=== PATIENT | male | born 1945 | race Caucasian/White ===

== ENCOUNTER 2017-09-26 08:45 | Inpatient (IN) | payer MEDICARE ==
--- NOTE | 2017-09-26 09:08 | ED ---
General Adult HPI - General Chief complaint: Altered Mental Status Stated complaint: Hyperglycemia/Altered Time Seen by Provider: 09/26/17 08:52 Source: patient, family, EMS, RN notes reviewed Mode of arrival: EMS Limitations: no limitations - History of Present Illness Initial comments: Patient is a pleasant 72-year-old male presenting to the emergency department with family for altered mental status. Onset was this morning. Patient has a known history of metastatic lung cancer. 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 Patient just recently underwent radiation the lumbar spine, and finished on Saturday. Patient was confused this morning and had several episodes of near-syncope. Patient appeared short of breath. Oxygen saturation was in the upper 70s. EMS also reports blood sugar over 400. Patient is currently on steroids. Decadron 4 mg twice a day. - Related Data Home Medications Medication Instructions Recorded Confirmed Amiodarone [Cordarone] 200 mg PO BID 09/26/17 09/26/17 Dexamethasone [Hexadrol] 4 mg PO BID 09/26/17 09/26/17 Diltiazem HCl [Diltiazem ER] 180 mg PO DAILY 09/26/17 09/26/17 Docusate [Colace] 100 mg PO BID 09/26/17 09/26/17 Enoxaparin [Lovenox] 90 mg SQ Q12H 09/26/17 09/26/17 Furosemide [Lasix] 40 mg PO HS 09/26/17 09/26/17 Furosemide [Lasix] 80 mg PO QAM 09/26/17 09/26/17 Gabapentin [Neurontin] 300 mg PO TID 09/26/17 09/26/17 HYDROmorphone [Dilaudid] 4 mg PO Q4H PRN 09/26/17 09/26/17 Insulin Aspart [NovoLOG Flexpen] See Protocol SQ ACHS 09/26/17 09/26/17 Insulin Glargine,Hum.rec.anlog 80 unit SQ 09/26/17 09/26/17 [Lantus Solostar] Magnesium(Unknown) 1 tab PO BID 09/26/17 09/26/17 Omeprazole [PriLOSEC] 20 mg PO DAILY 09/26/17 09/26/17 PARoxetine [Paxil] 10 mg PO DAILY 09/26/17 09/26/17 Pravastatin Sodium [Pravachol] 20 mg PO DAILY 09/26/17 09/26/17 fentaNYL 50MCG/HR PATCH [Duragesic 1 patch TRANSDERM Q72H 09/26/17 09/26/17 50MCG/HR] levETIRAcetam [Keppra] 500 mg PO BID 09/26/17 09/26/17 Allergies Allergy/AdvReac Type Severity Reaction Status Date / Time Sulfa (Sulfonamide Allergy Rash/Hives Verified 09/26/17 09:10 Antibiotics) Review of Systems ROS Statement: Those systems with pertinent positive or pertinent negative responses have been documented in the HPI. ROS Other: All systems not noted in ROS Statement are negative. Constitutional: Denies: fever Eyes: Denies: eye pain ENT: Denies: ear pain Respiratory: Reports: as per HPI, cough, dyspnea Cardiovascular: Denies: chest pain Endocrine: Reports: fatigue Gastrointestinal: Denies: abdominal pain Genitourinary: Denies: dysuria Musculoskeletal: Reports: back pain (Known metastasis) Skin: Denies: rash Neurological: Reports: confusion (Resolved). Denies: headache Past Medical History Past Medical History: Cancer, Diabetes Mellitus, Hyperlipidemia, Hypertension Additional Past Medical History / Comment(s): recent sinus infection, hx of brain Ca, lung ca with mets to spine R femur and sternum, pt had radiation of brain History of Any Multi-Drug Resistant Organisms: None Reported Past Surgical History: Hernia Repair Additional Past Surgical History / Comment(s): umbilical hernia, mediport L subclavian Past Anesthesia/Blood Transfusion Reactions: No Reported Reaction Past Psychological History: No Psychological Hx Reported Smoking Status: Former smoker Past Alcohol Use History: None Reported Past Drug Use History: None Reported - Past Family History Mother Additional Family Medical History / Comment(s): when pt was 12 years old. not sure of cause. Father Family Medical History: Liver Disease Additional Family Medical History / Comment(s): alcoholic cirrhosis General Exam Limitations: no limitations General appearance: alert, in no apparent distress Head exam: Present: atraumatic Eye exam: Present: normal appearance, PERRL ENT exam: Present: normal oropharynx Neck exam: Present: normal inspection Respiratory exam: Present: normal lung sounds bilaterally Cardiovascular Exam: Present: irregular rhythm GI/Abdominal exam: Present: soft. Absent: tenderness Extremities exam: Present: normal inspection Neurological exam: Present: alert, oriented X3. Absent: motor sensory deficit Psychiatric exam: Present: normal affect, normal mood Skin exam: Present: normal color Course Vital Signs 09/26/17 09/26/17 09/26/17 08:51 10:02 11:31 Temperature 97.0 F L 97.2 F L Pulse Rate 78 80 88 Respiratory 16 18 16 Rate Blood Pressure 135/47 135/68 144/64 O2 Sat by Pulse 100 100 100 Oximetry EKG Findings - EKG Comments: EKG Findings:: A. fib with rate of 81. QRS 92. QT 400. QTc 464. Normal axis. Normal QRS. No acute ST change. Medical Decision Making - Medical Decision Making Patient reevaluated and resting comfortably in bed. Patient and family are updated on results and plan. Case was discussed in detail with Dr. Parker, who would admit for hospital call. - Lab Data Result diagrams: 09/26/17 09:55 09/26/17 09:55 Lab Results 09/26/17 09/26/17 09/26/17 Range/Units 09:10 09:42 09:55 WBC 14.3 H (3.8-10.6) k/uL RBC 2.41 L (4.30-5.90) m/uL Hgb 7.4 L (13.0-17.5) gm/dL Hct 22.8 L (39.0-53.0) % MCV 94.6 (80.0-100.0) fL MCH 30.9 (25.0-35.0) pg MCHC 32.6 (31.0-37.0) g/dL RDW 18.4 H (11.5-15.5) % Plt Count 170 (150-450) k/uL Neutrophils % 93 % Lymphocytes % 1 % Monocytes % 5 % Eosinophils % 0 % Basophils % 0 % Neutrophils # 13.3 H (1.3-7.7) k/uL Lymphocytes # 0.2 L (1.0-4.8) k/uL Monocytes # 0.7 (0-1.0) k/uL Eosinophils # 0.0 (0-0.7) k/uL Basophils # 0.0 (0-0.2) k/uL Hypochromasia Moderate Anisocytosis Slight Macrocytosis Slight PT (9.0-12.0) sec INR (<1.2) APTT (22.0-30.0) sec Sample Site rt radial ABG pH 7.38 (7.35-7.45) ABG pCO2 40 (35-45) mmHg ABG pO2 94 (83-108) mmHg ABG HCO3 24 (21-25) mmol/L ABG Total CO2 25 H (19-24) mmol/L ABG O2 Saturation 97.1 H (94-97) % ABG Base Excess -1.7 mmol/L Jacob Test Yes FiO2 28 % Sodium (137-145) mmol/L Potassium (3.5-5.1) mmol/L Chloride (98-107) mmol/L Carbon Dioxide (22-30) mmol/L Anion Gap mmol/L BUN (9-20) mg/dL Creatinine (0.66-1.25) mg/dL Est GFR (CKD-EPI)AfAm (>60 ml/min/1.73 sqM) Est GFR (CKD-EPI)NonAf (>60 ml/min/1.73 sqM) Glucose (74-99) mg/dL POC Glucose (mg/dL) 423 H (75-99) mg/dL POC Glu Investment Banker ID Jeannie Mayfield Calcium (8.4-10.2) mg/dL Magnesium (1.6-2.3) mg/dL Total Bilirubin (0.2-1.3) mg/dL AST (17-59) U/L ALT (21-72) U/L Alkaline Phosphatase (38-126) U/L Total Protein (6.3-8.2) g/dL Albumin (3.5-5.0) g/dL Urine Color Urine Appearance (Clear) Urine pH (5.0-8.0) Ur Specific [place] (1.001-1.035) Urine Protein (Negative) Urine Glucose (UA) (Negative) Urine Ketones (Negative) Urine Blood (Negative) Urine Nitrite (Negative) Urine Bilirubin (Negative) Urine Urobilinogen (<2.0) mg/dL Ur Leukocyte Esterase (Negative) Urine RBC (0-5) /hpf Urine WBC (0-5) /hpf Ur Squamous Epith Cells (0-4) /hpf Urine Mucus (None) /hpf Stool Occult Blood (Negative) Acetone, Qual (Negative) 09/26/17 09/26/17 09/26/17 Range/Units 09:55 09:55 10:53 WBC (3.8-10.6) k/uL RBC (4.30-5.90) m/uL Hgb (13.0-17.5) gm/dL Hct (39.0-53.0) % MCV (80.0-100.0) fL MCH (25.0-35.0) pg MCHC (31.0-37.0) g/dL RDW (11.5-15.5) % Plt Count (150-450) k/uL Neutrophils % % Lymphocytes % % Monocytes % % Eosinophils % % Basophils % % Neutrophils # (1.3-7.7) k/uL Lymphocytes # (1.0-4.8) k/uL Monocytes # (0-1.0) k/uL Eosinophils # (0-0.7) k/uL Basophils # (0-0.2) k/uL Hypochromasia Anisocytosis Macrocytosis PT 11.8 (9.0-12.0) sec INR 1.2 H (<1.2) APTT 25.1 (22.0-30.0) sec Sample Site ABG pH (7.35-7.45) ABG pCO2 (35-45) mmHg ABG pO2 (83-108) mmHg ABG HCO3 (21-25) mmol/L ABG Total CO2 (19-24) mmol/L ABG O2 Saturation (94-97) % ABG Base Excess mmol/L Jacob Test FiO2 % Sodium 133 L (137-145) mmol/L Potassium 4.6 (3.5-5.1) mmol/L Chloride 94 L (98-107) mmol/L Carbon Dioxide 24 (22-30) mmol/L Anion Gap 15 mmol/L BUN 49 H (9-20) mg/dL Creatinine 1.68 H (0.66-1.25) mg/dL Est GFR (CKD-EPI)AfAm 47 (>60 ml/min/1.73 sqM) Est GFR (CKD-EPI)NonAf 41 (>60 ml/min/1.73 sqM) Glucose 383 H (74-99) mg/dL POC Glucose (mg/dL) 417 H (75-99) mg/dL POC Glu Investment Banker ID Fariha Nieto Calcium 8.7 (8.4-10.2) mg/dL Magnesium 2.2 (1.6-2.3) mg/dL Total Bilirubin 0.5 (0.2-1.3) mg/dL AST 89 H (17-59) U/L ALT 101 H (21-72) U/L Alkaline Phosphatase 44 (38-126) U/L Total Protein 4.6 L (6.3-8.2) g/dL Albumin 2.7 L (3.5-5.0) g/dL Urine Color Urine Appearance (Clear) Urine pH (5.0-8.0) Ur Specific [place] (1.001-1.035) Urine Protein (Negative) Urine Glucose (UA) (Negative) Urine Ketones (Negative) Urine Blood (Negative) Urine Nitrite (Negative) Urine Bilirubin (Negative) Urine Urobilinogen (<2.0) mg/dL Ur Leukocyte Esterase (Negative) Urine RBC (0-5) /hpf Urine WBC (0-5) /hpf Ur Squamous Epith Cells (0-4) /hpf Urine Mucus (None) /hpf Stool Occult Blood (Negative) Acetone, Qual Negative (Negative) 09/26/17 09/26/17 Range/Units 10:54 12:22 WBC (3.8-10.6) k/uL RBC (4.30-5.90) m/uL Hgb (13.0-17.5) gm/dL Hct (39.0-53.0) % MCV (80.0-100.0) fL MCH (25.0-35.0) pg MCHC (31.0-37.0) g/dL RDW (11.5-15.5) % Plt Count (150-450) k/uL Neutrophils % % Lymphocytes % % Monocytes % % Eosinophils % % Basophils % % Neutrophils # (1.3-7.7) k/uL Lymphocytes # (1.0-4.8) k/uL Monocytes # (0-1.0) k/uL Eosinophils # (0-0.7) k/uL Basophils # (0-0.2) k/uL Hypochromasia Anisocytosis Macrocytosis PT (9.0-12.0) sec INR (<1.2) APTT (22.0-30.0) sec Sample Site ABG pH (7.35-7.45) ABG pCO2 (35-45) mmHg ABG pO2 (83-108) mmHg ABG HCO3 (21-25) mmol/L ABG Total CO2 (19-24) mmol/L ABG O2 Saturation (94-97) % ABG Base Excess mmol/L Jacob Test FiO2 % Sodium (137-145) mmol/L Potassium (3.5-5.1) mmol/L Chloride (98-107) mmol/L Carbon Dioxide (22-30) mmol/L Anion Gap mmol/L BUN (9-20) mg/dL Creatinine (0.66-1.25) mg/dL Est GFR (CKD-EPI)AfAm (>60 ml/min/1.73 sqM) Est GFR (CKD-EPI)NonAf (>60 ml/min/1.73 sqM) Glucose (74-99) mg/dL POC Glucose (mg/dL) (75-99) mg/dL POC Glu Investment Banker ID Calcium (8.4-10.2) mg/dL Magnesium (1.6-2.3) mg/dL Total Bilirubin (0.2-1.3) mg/dL AST (17-59) U/L ALT (21-72) U/L Alkaline Phosphatase (38-126) U/L Total Protein (6.3-8.2) g/dL Albumin (3.5-5.0) g/dL Urine Color Yellow Urine Appearance Clear (Clear) Urine pH 5.0 (5.0-8.0) Ur Specific [place] 1.032 (1.001-1.035) Urine Protein Trace H (Negative) Urine Glucose (UA) Trace H (Negative) Urine Ketones Negative (Negative) Urine Blood Moderate H (Negative) Urine Nitrite Negative (Negative) Urine Bilirubin Negative (Negative) Urine Urobilinogen <2.0 (<2.0) mg/dL Ur Leukocyte Esterase Negative (Negative) Urine RBC 11 H (0-5) /hpf Urine WBC 3 (0-5) /hpf Ur Squamous Epith Cells 1 (0-4) /hpf Urine Mucus Occasional H (None) /hpf Stool Occult Blood Negative (Negative) Acetone, Qual (Negative) - Radiology Data Radiology results: report reviewed (Computed tomography scan of the brain shows degenerative and nonspecific white matter changes. Area of low attenuation left frontal lobe that may be chronic.), image reviewed (Two-view chest x-ray shows right paraspinal border lobulation that could be rotational however adenopathy or masses not excluded. Asymmetric attenuation right hemithorax.) Disposition Clinical Impression: Near syncope, Dehydration, Anemia, Hyperglycemia Disposition: ADMITTED IP TO THIS [facility] Condition: Serious Referrals: Jos Ledesma DO [Primary Care Provider] - 1-2 days Decision Time: 12:51
[2017-09-26 09:22] LABS: Glucose,Whole Blood 423 mg/dL (75-99)
[2017-09-26 09:42] LABS: ABG Base Excess -1.7 mmol/L; ABG HCO3 24 mmol/L (21-25); ABG Oxygen Saturation 97.1 % (94-97); ABG PCO2 40 mmHg (35-45); ABG PH 7.38 (7.35-7.45); ABG PO2 94 mmHg (83-108); ABG TCO2 25 mmol/L (19-24)
[2017-09-26] MEDS: INSULIN ASPART 100 UNIT/ML 1 ML 10 ML VIAL SQ SCH ×4 (09:42→21:42)
[2017-09-26 10:28] LABS: INR 1.2 (<1.2); Partial Thromboplastin Time 25.1 sec (22.0-30.0); Prothrombin Time 11.8 sec (9.0-12.0)
[2017-09-26 10:29] LABS: ALT 101 U/L (21-72); AST 89 U/L (17-59); Albumin 2.7 g/dL (3.5-5.0); Alkaline Phosphatase 44 U/L (38-126); Anion Gap 15 mmol/L; Blood Urea Nitrogen 49 mg/dL (9-20); Calcium 8.7 mg/dL (8.4-10.2); Carbon Dioxide 24 mmol/L (22-30); Chloride 94 mmol/L (98-107); Glucose 383 mg/dL (74-99); Magnesium 2.2 mg/dL (1.6-2.3); Potassium 4.6 mmol/L (3.5-5.1); Sodium 133 mmol/L (137-145); Total Bilirubin 0.5 mg/dL (0.2-1.3); Total Protein 4.6 g/dL (6.3-8.2)
--- NOTE | 2017-09-26 10:35 | XR ---
EXAMINATION TYPE: XR chest 2V DATE OF EXAM: 09/26/2017 COMPARISON: 03/01/2017 TECHNIQUE: PA and lateral views submitted. HISTORY: Altered mental status FINDINGS: Exam is limited. A Mediport catheter seen. Tip of the catheter is not well identified. There is vague asymmetric opacity overlying the right lung. Is lobulation along the paraspinal border on the right. Left lung appears clear. No obvious pleural effusion. Hypertrophic and degenerative change of the sp ine. IMPRESSION: 1. Lobulation along the right paraspinal border could be related to patient rotation although areas o f adenopathy or mass not excluded. Asymmetric attenuation to the right hemithorax may be soft tissue related. If there is concern for infiltrate correlate with CT scan given limitations of exam.
[2017-09-26 10:38] LABS: Anisocytosis Slight; Basophils % (A) 0 %; Eosinophils % (A) 0 %; HCT 22.8 % (39.0-53.0); HGB 7.4 gm/dL (13.0-17.5); Hypochromasia Moderate; Lymphocytes # (A) 0.2 k/uL (1.0-4.8); Lymphocytes % (A) 1 %; MCH 30.9 pg (25.0-35.0); MCHC 32.6 g/dL (31.0-37.0); MCV 94.6 fL (80.0-100.0); Macrocytosis Slight; Mean Platelet Volume 7.7; Monocytes # (A) 0.7 k/uL (0-1.0); Monocytes % (A) 5 %; Neutrophils # (A) 13.3 k/uL (1.3-7.7); Neutrophils % (A) 93 %; Platelet Count 170 k/uL (150-450); RBC 2.41 m/uL (4.30-5.90); RDW 18.4 % (11.5-15.5); WBC 14.3 k/uL (3.8-10.6)
[2017-09-26 10:58] LABS: Glucose,Whole Blood 417 mg/dL (75-99)
[2017-09-26 11:13] LABS: Appearance,Urine Clear (Clear); Bilirubin,Urine Negative (Negative); Blood,Urine Moderate (Negative); Color,Urine Yellow; Glucose,Urine (UA) Trace (Negative); Ketones,Urine Negative (Negative); Leukocyte Esterase,Urine Negative (Negative); Mucus,Urine Occasional /hpf; Nitrite,Urine Negative (Negative); Protein,Urine Trace (Negative); RBC,Urine 11 /hpf (0-5); Specific Gravity,Urine 1.032 (1.001-1.035); Squamous Epithelial Cell,Urine 1 /hpf (0-4); Urobilinogen,Urine <2.0 mg/dL (<2.0); WBC,Urine 3 /hpf (0-5)
[2017-09-26] MEDS ORDERED: SODIUM CHLORIDE 0.9% 500 ML IV ONE (11:13)
--- NOTE | 2017-09-26 11:48 | CT ---
EXAMINATION TYPE: CT brain wo/w con DATE OF EXAM: 09/26/2017 COMPARISON: 02/28/2017 HISTORY: Hyperglycemia, altered mental status and cancer history CT DLP: 2128.6 mGycm Automated exposure control for dose reduction was used. CONTRAST: CT scan of the head is performed without and with IV Contrast, patient injected with 80 ml mL of Isov ue 300. FINDINGS: There is [id number] generalized degenerative change. Periventricular low attenuation is nonspec ific but most typical remote microvascular ischemia. Intracranial atherosclerotic changes noted. The calvarium is intact. There is no enhancing mass or mass effect. IMPRESSION: 1. Degenerative and nonspecific white matter changes most typical remote microvascular ischemia and s imilar in appearance to the prior exam. 2. Abnormal attenuation seen within the left parietal lobe on the previous exam is not seen with cert ainty and today's exam with no definite enhancing mass. 3. Area of low attenuation left frontal lobe not clearly seen on the previous exam. This may be chron ic. There is no enhancement in the region to confirm metastases. Recommend follow-up MRI.
[2017-09-26] MEDS ORDERED: INSULIN ASPART 100 UNIT/ML 1 ML 10 ML VIAL SQ SCH (12:30)
[2017-09-26] MEDS ORDERED: MORPHINE SULFATE 4 MG/ML SYRINGE IV PRN (12:51)
[2017-09-26] MEDS ORDERED: NALOXONE 0.4 MG/ML 1 ML VIAL IV PRN (12:51)
[2017-09-26] MEDS ORDERED: HYDROmorphone 2 MG TAB PO PRN (13:30)
[2017-09-26] MEDS: SODIUM CHLORIDE 0.9% 1,000 ML IV SCH (14:01)
[2017-09-26 14:04] LABS: Glucose,Whole Blood 395 mg/dL (75-99)
[2017-09-26 15:37] LABS: Glucose,Whole Blood 359 mg/dL (75-99)
[2017-09-26] MEDS ORDERED: HEPARIN SODIUM,PORCINE 5,000 UNIT/ML 1 ML VIAL IV PRN (15:44)
[2017-09-26] MEDS: HEPARIN SOD,PORK IN 0.45% NACL 25,000 UNIT in 0.45% NACL 1 500ML.BAG IV SCH (16:09)
[2017-09-26 16:25] LABS: INR 1.1 (<1.2); Prothrombin Time 10.9 sec (9.0-12.0)
[2017-09-26 17:05] LABS: Glucose,Whole Blood 326 mg/dL (75-99)
--- NOTE | 2017-09-26 17:28 | P.HPIM ---
History of Present Illness H&P Date: 09/26/17 Chief Complaint: Altered mental status and confusion This is a 72-year-old male with an extensive medical history significant for metastatic lung cancer, chronic atrial fibrillation, recent DVT to right upper extremity on subcu Lovenox, and chronic hypoxic respiratory failure on home O2 who presented to the emergency room with confusion and hypoxia. Apparently patient has been more confused since last night. This morning he woke up confused and appeared clammy. His family noted that he was cold and they tried to check his oxygen level and he was down in the 70s. Patient was less responsive so they called EMS immediately. EMS paperwork not available for me to review. Per verbal report, patient was found to be hypoxic with O2 sat duration in the 70s and hypotensive with blood pressure in the 90s. Patient was rushed to the emergency room. By the time he arrived to the emergency room patient was awake and alert he was found to be hemodynamically stable. Twelve- lead ECG showed atrial fibrillation rate controlled. Patient himself denies any complaint at this time. Other than chronic back and hip pain he denies any shortness of breath, dizziness, chest pain, cough, or palpitation. No fevers or chills. In the emergency room, patient had general blood work showing worsening hemoglobin level and acute kidney injury. Chest x-ray and computed tomography scan report reviewed. I had the chance to discuss his care with his oncologist at [facility] over the phone and apparently patient was diagnosed in February of last year. 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 Patient underwent stereotactic radiosurgery to the frontal lobe mass with recent MRI last month showing no evidence of recurrence. He has been getting radiation therapy at [facility] in [place] with recent admission earlier this week. Review of Systems Review of system: 14 points review of systems were obtained and were negative except to what were mentioned in the HPI. Past Medical History Past Medical History: Atrial Fibrillation, Cancer, Diabetes Mellitus, GERD/ Reflux, Hyperlipidemia, Hypertension Additional Past Medical History / Comment(s): past sinus infections, hx of brain Ca(had radiation and "told it was clear"), lung ca(had 2 tx chemo but had reaction to it then had 7 week break from it then restarted a reformulated chemo tx 2 cycles of it but on last tx again developed a reaction to it). has mets to spine-(just finsihed radiation tx to spine), [place] femur and pelvis/ribs/ sternum. History of Any Multi-Drug Resistant Organisms: None Reported Past Surgical History: Hernia Repair Additional Past Surgical History / Comment(s): umbilical hernia, mediport L subclavian, cyst removed from tailbone Past Anesthesia/Blood Transfusion Reactions: No Reported Reaction Smoking Status: Former smoker - Past Family History Mother Additional Family Medical History / Comment(s): when pt was 12 years old. not sure of cause. Father Family Medical History: Liver Disease Additional Family Medical History / Comment(s): alcoholic cirrhosis Medications and Allergies Home Medications Medication Instructions Recorded Confirmed Type Amiodarone [Cordarone] 200 mg PO BID 09/26/17 09/26/17 History Dexamethasone [Hexadrol] 4 mg PO BID 09/26/17 09/26/17 History Diltiazem HCl [Diltiazem ER] 180 mg PO DAILY 09/26/17 09/26/17 History Docusate [Colace] 100 mg PO BID 09/26/17 09/26/17 History Enoxaparin [Lovenox] 90 mg SQ Q12H 09/26/17 09/26/17 History Furosemide [Lasix] 40 mg PO HS 09/26/17 09/26/17 History Furosemide [Lasix] 80 mg PO QAM 09/26/17 09/26/17 History Gabapentin [Neurontin] 300 mg PO TID 09/26/17 09/26/17 History HYDROmorphone [Dilaudid] 4 mg PO Q4H PRN 09/26/17 09/26/17 History Insulin Aspart [NovoLOG Flexpen] See Protocol SQ ACHS 09/26/17 09/26/17 History Insulin Glargine,Hum.rec.anlog 80 unit SQ HS 09/26/17 09/26/17 History [Lantus Solostar] Magnesium(Unknown) 1 tab PO BID 09/26/17 09/26/17 History Omeprazole [PriLOSEC] 20 mg PO DAILY 09/26/17 09/26/17 History PARoxetine [Paxil] 10 mg PO DAILY 09/26/17 09/26/17 History Pravastatin Sodium [Pravachol] 20 mg PO DAILY 09/26/17 09/26/17 History fentaNYL 50MCG/HR PATCH [Duragesic 1 patch TRANSDERM Q72H 09/26/17 09/26/17 History 50MCG/HR] levETIRAcetam [Keppra] 500 mg PO BID 09/26/17 09/26/17 History Allergies Allergy/AdvReac Type Severity Reaction Status Date / Time Sulfa (Sulfonamide Allergy Rash/Hives Verified 09/26/17 09:10 Antibiotics) Physical Exam Vitals: Vital Signs Temp Pulse Resp BP Pulse Ox 09/26/17 16:00 16 09/26/17 14:35 97.7 F 09/26/17 13:50 97.7 F 80 16 102/67 99 09/26/17 11:31 88 16 144/64 100 09/26/17 10:02 97.2 F L 80 18 135/68 100 09/26/17 08:51 97.0 F L 78 16 135/47 100 Intake and Output 09/26/17 09/26/17 09/26/17 06:59 14:59 22:59 Other: Voiding Method Urinal Diaper Weight 122.47 kg General: The patient is awake and alert, in no distress. He is morbidly obese. Eye: there is normal conjunctiva bilaterally. Neck: The neck is supple, there is no JVD. Cardiovascular: Heart sounds are distant. Normal S1-S2, no S3-S4, no murmurs. Respiratory: Lungs clear to anterior chest auscultation bilaterally Gastrointestinal: Abdomen is obese, soft, nontender Musculoskeletal: There is +1 pedal edema. Neurological:. Speech is normal. Skin: Skin is warm and dry Results CBC & Chem 7: 09/26/17 09:55 09/26/17 09:55 Labs: Abnormal Lab Results - Last 24 Hours (Table) 09/26/17 09/26/17 09/26/17 Range/Units 09:10 09:42 09:55 WBC 14.3 H (3.8-10.6) k/uL RBC 2.41 L (4.30-5.90) m/uL Hgb 7.4 L (13.0-17.5) gm/dL Hct 22.8 L (39.0-53.0) % RDW 18.4 H (11.5-15.5) % Neutrophils # 13.3 H (1.3-7.7) k/uL Lymphocytes # 0.2 L (1.0-4.8) k/uL INR (<1.2) ABG Total CO2 25 H (19-24) mmol/L ABG O2 Saturation 97.1 H (94-97) % Sodium (137-145) mmol/L Chloride (98-107) mmol/L BUN (9-20) mg/dL Creatinine (0.66-1.25) mg/dL Glucose (74-99) mg/dL POC Glucose (mg/dL) 423 H (75-99) mg/dL AST (17-59) U/L ALT (21-72) U/L Total Protein (6.3-8.2) g/dL Albumin (3.5-5.0) g/dL Urine Protein (Negative) Urine Glucose (UA) (Negative) Urine Blood (Negative) Urine RBC (0-5) /hpf Urine Mucus (None) /hpf 09/26/17 09/26/17 09/26/17 Range/Units 09:55 09:55 10:53 WBC (3.8-10.6) k/uL RBC (4.30-5.90) m/uL Hgb (13.0-17.5) gm/dL Hct (39.0-53.0) % RDW (11.5-15.5) % Neutrophils # (1.3-7.7) k/uL Lymphocytes # (1.0-4.8) k/uL INR 1.2 H (<1.2) ABG Total CO2 (19-24) mmol/L ABG O2 Saturation (94-97) % Sodium 133 L (137-145) mmol/L Chloride 94 L (98-107) mmol/L BUN 49 H (9-20) mg/dL Creatinine 1.68 H (0.66-1.25) mg/dL Glucose 383 H (74-99) mg/dL POC Glucose (mg/dL) 417 H (75-99) mg/dL AST 89 H (17-59) U/L ALT 101 H (21-72) U/L Total Protein 4.6 L (6.3-8.2) g/dL Albumin 2.7 L (3.5-5.0) g/dL Urine Protein (Negative) Urine Glucose (UA) (Negative) Urine Blood (Negative) Urine RBC (0-5) /hpf Urine Mucus (None) /hpf 09/26/17 09/26/17 09/26/17 Range/Units 10:54 13:46 15:36 WBC (3.8-10.6) k/uL RBC (4.30-5.90) m/uL Hgb (13.0-17.5) gm/dL Hct (39.0-53.0) % RDW (11.5-15.5) % Neutrophils # (1.3-7.7) k/uL Lymphocytes # (1.0-4.8) k/uL INR (<1.2) ABG Total CO2 (19-24) mmol/L ABG O2 Saturation (94-97) % Sodium (137-145) mmol/L Chloride (98-107) mmol/L BUN (9-20) mg/dL Creatinine (0.66-1.25) mg/dL Glucose (74-99) mg/dL POC Glucose (mg/dL) 395 H 359 H (75-99) mg/dL AST (17-59) U/L ALT (21-72) U/L Total Protein (6.3-8.2) g/dL Albumin (3.5-5.0) g/dL Urine Protein Trace H (Negative) Urine Glucose (UA) Trace H (Negative) Urine Blood Moderate H (Negative) Urine RBC 11 H (0-5) /hpf Urine Mucus Occasional H (None) /hpf 09/26/17 Range/Units 17:04 WBC (3.8-10.6) k/uL RBC (4.30-5.90) m/uL Hgb (13.0-17.5) gm/dL Hct (39.0-53.0) % RDW (11.5-15.5) % Neutrophils # (1.3-7.7) k/uL Lymphocytes # (1.0-4.8) k/uL INR (<1.2) ABG Total CO2 (19-24) mmol/L ABG O2 Saturation (94-97) % Sodium (137-145) mmol/L Chloride (98-107) mmol/L BUN (9-20) mg/dL Creatinine (0.66-1.25) mg/dL Glucose (74-99) mg/dL POC Glucose (mg/dL) 326 H (75-99) mg/dL AST (17-59) U/L ALT (21-72) U/L Total Protein (6.3-8.2) g/dL Albumin (3.5-5.0) g/dL Urine Protein (Negative) Urine Glucose (UA) (Negative) Urine Blood (Negative) Urine RBC (0-5) /hpf Urine Mucus (None) /hpf Thrombosis Risk Factor Assmnt - Choose All That Apply Each Factor Represents 1 point: Obesity (BMI >25) Other Risk Factors: Yes Each Risk Factor Represents 2 Points: Age 61-74 years Thrombosis Risk Factor Assessment Total Risk Factor Score: 3 Thrombosis Risk Factor Assessment Level: Moderate Risk Assessment and Plan Assessment: 1. Acute kidney injury: Probably contrast induced. Patient had computed tomography scan of the chest abdomen and pelvis at [facility] yesterday. I would continue IV fluid hydration. I will check postvoid residual to rule out retention. Repeat BMP in the morning. Hold nephrotoxic including Lasix. 2. Acute on chronic anemia, no evidence of ongoing bleed. Hemoccult was negative in the emergency room. Patient's hemoglobin 3 days ago was 11 and today 7.4. Computed tomography scan of the abdomen showed no evidence of internal bleed. We will continue to monitor closely and repeat lab work in the morning. Transfuse as needed for hemoglobin below 7. 3. Non-small lung cancer stage IV with bone metastasis currently on palliative radiation therapy. Patient maintained on Decadron twice a day. Radiation oncology. Computed tomography scan of the chest done at [facility] yesterday showed interval development of for occlusion of the right upper lobe bronchus with soft issue density noted suggestive for enlarging mass along the right hilar region. There was progression of lytic lesions throughout the bones. 4. Altered mental status, may be attributed to toxic metabolic encephalopathy secondary to acute kidney injury, opiate use, and gabapentin. No documentation of blood glucose at home but no report of hypoglycemia. Patient mental status is back to normal. Computed tomography scan of the brain reviewed. May consider MRI of the brain for further evaluation. Not urgent at this time 5. Type 2 diabetes mellitus, blood glucose not well controlled. We will continue home dose of insulin plus sliding scale. A1c ordered. 6. Acute on chronic hypoxic respiratory failure on home O2 7. Chronic atrial fibrillation, rate controlled. On anticoagulation with Lovenox 8. History of DVT involving the upper extremity (am not sure left or right) on anticoagulation chronically with Lovenox 9. Chronic pain secondary to bone metastasis, continue fentanyl patch. Continue as needed pain medication 10. CODE STATUS: Patient is a full code Today, I discussed the patient condition with his oncologist at [facility] Dr. Meeks. Plan is to continue supportive care and monitor kidney function. Patient would eventually follow-up at [facility]. Today, I had an extensive talk with the patient and his family regarding goals of care and CODE STATUS. Patient verbalizes wishes that he wants to be a full code. He is not interested in comfort measures or hospice care at this time.
[2017-09-26] MEDS: HYDROmorphone 2 MG TAB PO PRN (19:47)
[2017-09-26] MEDS ORDERED: MAGNESIUM PO SCH (21:00)
[2017-09-26 21:18] LABS: Hemoglobin A1C 8.2 % (4.0-6.0)
[2017-09-26 21:28] LABS: Glucose,Whole Blood 277 mg/dL (75-99)
[2017-09-26] MEDS: AMIODARONE 200 MG TAB PO SCH (21:42)
[2017-09-26] MEDS: INSULIN DETEMIR 100 UNIT/ML 10 ML VIAL SQ SCH (21:42)
[2017-09-26] MEDS: GABAPENTIN 100 MG CAP PO SCH (21:43)
[2017-09-26] MEDS: DOCUSATE 100 MG CAP PO SCH (21:43)
[2017-09-26] MEDS: levETIRAcetam 500 MG TAB PO SCH (21:43)
[2017-09-26] MEDS: DEXAMETHASONE 4 MG TAB PO SCH (21:43)
[2017-09-27] MEDS: SODIUM CHLORIDE 0.9% 1,000 ML IV SCH ×3 (04:09→21:18)
[2017-09-27 07:27] LABS: Glucose,Whole Blood 122 mg/dL (75-99)
[2017-09-27 08:27] LABS: Calcium 8.8 mg/dL (8.4-10.2); Potassium 4.1 mmol/L (3.5-5.1)
[2017-09-27] MEDS: INSULIN ASPART 100 UNIT/ML 1 ML 10 ML VIAL SQ SCH ×4 (08:30→21:19)
[2017-09-27 08:48] LABS: Anisocytosis Slight; HCT 20.2 % (39.0-53.0); Hypochromasia Slight; MCH 30.5 pg (25.0-35.0); MCHC 31.7 g/dL (31.0-37.0); MCV 96.4 fL (80.0-100.0); Macrocytosis Slight; Mean Platelet Volume 7.5; Platelet Count 155 k/uL (150-450); RBC 2.09 m/uL (4.30-5.90); RDW 19.3 % (11.5-15.5)
[2017-09-27 08:54] LABS: HGB 6.4 gm/dL (13.0-17.5)
[2017-09-27] MEDS ORDERED: PANTOPRAZOLE 40 MG/10 ML VIAL IV SCH (09:00)
[2017-09-27] MEDS: AMIODARONE 200 MG TAB PO SCH ×2 (09:06→21:19)
[2017-09-27] MEDS: DOCUSATE 100 MG CAP PO SCH ×2 (09:07→21:19)
[2017-09-27] MEDS: DILTIAZEM CD 180 MG CAP.ER.24H PO SCH (09:07)
[2017-09-27] MEDS: DEXAMETHASONE 4 MG TAB PO SCH ×2 (09:07→21:19)
[2017-09-27] MEDS: GABAPENTIN 100 MG CAP PO SCH ×2 (09:07→21:19)
[2017-09-27] MEDS: levETIRAcetam 500 MG TAB PO SCH ×2 (09:08→21:19)
[2017-09-27] MEDS: PRAVASTATIN SODIUM 20 MG TAB PO SCH (09:08)
[2017-09-27] MEDS: PARoxetine 10 MG TAB PO SCH (09:08)
[2017-09-27 10:08] LABS: Metamyelocytes # (M) 0.13 k/uL (0); Metamyelocytes % 1 %; Monocytes # (M) 0.38 k/uL (0-1.0); Neutrophils % (M) 92 %; Nucleated Red Blood Cells 2 /100 WBC (0-0); Total Cells Counted 200
[2017-09-27 10:09] LABS: Poikilocytosis (M) Present; Polychromasia Present; WBC 12.5 k/uL (3.8-10.6)
--- NOTE | 2017-09-27 11:13 | P.PN ---
Subjective Progress Note Date: 09/27/17 Principal diagnosis: Acute on chronic anemia Metastatic lung cancer Patient is still feeling weak and lightheaded this morning. Hemoglobin dropped to 6.4 this morning. No evidence of GI bleed. No black or tarry stool. Objective - Vital Signs Vital signs: Vital Signs Temp 98.7 F 09/27/17 08:10 Pulse 94 09/27/17 08:10 Resp 16 09/27/17 08:10 BP 134/62 09/27/17 08:10 Pulse Ox 97 09/27/17 08:10 Intake & Output 09/26/17 09/27/17 09/27/17 18:59 06:59 18:59 Intake Total 733.405 Balance 733.405 Weight 122.47 kg Intake: Intake, IV Titration 143.405 Amount Heparin Sod,Pork in 0.45% 143.405 NaCl 25,000 unit In 0.45 % NaCl 1 500ml.bag @ 8.17 UNITS/KG/HR 20.01 mls/hr IV .Q24H [facility] Rx#: [id number] Oral 590 Other: Voiding Method Urinal Urinal Diaper Diaper # Voids 1 - Exam General: The patient is awake and alert, in no distress. He appeared pale Eye: there is normal conjunctiva bilaterally. Neck: The neck is supple, there is no JVD. Cardiovascular: Normal S1-S2, no S3-S4, no murmurs. Respiratory: Lungs clear to auscultation bilaterally Gastrointestinal: Abdomen is obese, soft, nontender Musculoskeletal: There is no pedal edema. Neurological:. Speech is normal. Skin: Skin is warm and dry - Labs CBC & Chem 7: 09/27/17 07:09 09/27/17 07:09 Labs: Abnormal Lab Results - Last 24 Hours (Table) 09/26/17 09/26/17 09/26/17 Range/Units 09:55 10:54 13:46 WBC (3.8-10.6) k/uL RBC (4.30-5.90) m/uL Hgb (13.0-17.5) gm/dL Hct (39.0-53.0) % RDW (11.5-15.5) % Neutrophils # (Manual) (1.3-7.7) k/uL Lymphocytes # (Manual) (1.0-4.8) k/uL Metamyelocytes # (Man) (0) k/uL Nucleated RBCs (0-0) /100 WBC APTT (22.0-30.0) sec Sodium (137-145) mmol/L Chloride (98-107) mmol/L Carbon Dioxide (22-30) mmol/L BUN (9-20) mg/dL Creatinine (0.66-1.25) mg/dL Glucose (74-99) mg/dL POC Glucose (mg/dL) 395 H (75-99) mg/dL Hemoglobin A1c 8.2 H (4.0-6.0) % Urine Protein Trace H (Negative) Urine Glucose (UA) Trace H (Negative) Urine Blood Moderate H (Negative) Urine RBC 11 H (0-5) /hpf Urine Mucus Occasional H (None) /hpf 09/26/17 09/26/17 09/26/17 Range/Units 15:36 17:04 21:27 WBC (3.8-10.6) k/uL RBC (4.30-5.90) m/uL Hgb (13.0-17.5) gm/dL Hct (39.0-53.0) % RDW (11.5-15.5) % Neutrophils # (Manual) (1.3-7.7) k/uL Lymphocytes # (Manual) (1.0-4.8) k/uL Metamyelocytes # (Man) (0) k/uL Nucleated RBCs (0-0) /100 WBC APTT (22.0-30.0) sec Sodium (137-145) mmol/L Chloride (98-107) mmol/L Carbon Dioxide (22-30) mmol/L BUN (9-20) mg/dL Creatinine (0.66-1.25) mg/dL Glucose (74-99) mg/dL POC Glucose (mg/dL) 359 H 326 H 277 H (75-99) mg/dL Hemoglobin A1c (4.0-6.0) % Urine Protein (Negative) Urine Glucose (UA) (Negative) Urine Blood (Negative) Urine RBC (0-5) /hpf Urine Mucus (None) /hpf 09/26/17 09/27/17 09/27/17 Range/Units 22:28 07:09 07:09 WBC 12.5 H (3.8-10.6) k/uL RBC 2.09 L (4.30-5.90) m/uL Hgb 6.4 L* (13.0-17.5) gm/dL Hct 20.2 L (39.0-53.0) % RDW 19.3 H (11.5-15.5) % Neutrophils # (Manual) 11.50 H (1.3-7.7) k/uL Lymphocytes # (Manual) 0.50 L (1.0-4.8) k/uL Metamyelocytes # (Man) 0.13 H (0) k/uL Nucleated RBCs 2 H (0-0) /100 WBC APTT 33.7 H (22.0-30.0) sec Sodium 134 L (137-145) mmol/L Chloride 97 L (98-107) mmol/L Carbon Dioxide 31 H (22-30) mmol/L BUN 53 H (9-20) mg/dL Creatinine 1.57 H (0.66-1.25) mg/dL Glucose 102 H (74-99) mg/dL POC Glucose (mg/dL) (75-99) mg/dL Hemoglobin A1c (4.0-6.0) % Urine Protein (Negative) Urine Glucose (UA) (Negative) Urine Blood (Negative) Urine RBC (0-5) /hpf Urine Mucus (None) /hpf 09/27/17 09/27/17 Range/Units 07:09 07:25 WBC (3.8-10.6) k/uL RBC (4.30-5.90) m/uL Hgb (13.0-17.5) gm/dL Hct (39.0-53.0) % RDW (11.5-15.5) % Neutrophils # (Manual) (1.3-7.7) k/uL Lymphocytes # (Manual) (1.0-4.8) k/uL Metamyelocytes # (Man) (0) k/uL Nucleated RBCs (0-0) /100 WBC APTT 47.2 H (22.0-30.0) sec Sodium (137-145) mmol/L Chloride (98-107) mmol/L Carbon Dioxide (22-30) mmol/L BUN (9-20) mg/dL Creatinine (0.66-1.25) mg/dL Glucose (74-99) mg/dL POC Glucose (mg/dL) 122 H (75-99) mg/dL Hemoglobin A1c (4.0-6.0) % Urine Protein (Negative) Urine Glucose (UA) (Negative) Urine Blood (Negative) Urine RBC (0-5) /hpf Urine Mucus (None) /hpf Assessment and Plan Assessment: 1. Acute kidney injury: Probably contrast induced. Patient had computed tomography scan of the chest abdomen and pelvis at [facility] yesterday. I would continue IV fluid hydration. Postvoid residual was not done by nursing staff as directed, I spoke to the nurse personally today to get it done . Repeat BMP in the morning. Hold nephrotoxic including Lasix. 2. Acute on chronic anemia, no evidence of ongoing bleed. 2 units of PRBC transfusion ordered today. I will repeat computed tomography scan of the abdomen to rule out intra-abdominal bleed Hemoccult was negative in the emergency room. Patient's hemoglobin 3 days ago was 11.3 at [facility]. Computed tomography scan of the abdomen on 09/25 at [facility] showed no evidence of internal bleed. We will continue to monitor closely and repeat lab work in the morning. 3. Non-small lung cancer stage IV with bone metastasis currently on palliative radiation therapy. Patient maintained on Decadron twice a day. Radiation oncology. Computed tomography scan of the chest done at [facility] yesterday showed interval development of for occlusion of the right upper lobe bronchus with soft issue density noted suggestive for enlarging mass along the right hilar region. There was progression of lytic lesions throughout the bones. 4. Altered mental status, may be attributed to toxic metabolic encephalopathy secondary to acute kidney injury, opiate use, and gabapentin. No documentation of blood glucose at home but no report of hypoglycemia. Patient mental status is back to normal. Computed tomography scan of the brain reviewed. May consider MRI of the brain for further evaluation. Not urgent at this time 5. Type 2 diabetes mellitus, blood glucose not well controlled. We will continue home dose of insulin plus sliding scale. A1c 8.2 6. Acute on chronic hypoxic respiratory failure on home O2 7. Chronic atrial fibrillation, rate controlled. On anticoagulation at home with Lovenox 8. History of DVT involving the upper extremity (am not sure left or right) on anticoagulation chronically with Lovenox 9. Chronic pain secondary to bone metastasis, continue fentanyl patch. Continue as needed pain medication 10. CODE STATUS: Patient is a full code I discussed the patient condition with his oncologist at [facility] Dr. Meeks. Plan is to continue supportive care and monitor kidney function. Patient would eventually follow-up at [facility]. Since there is no evidence of ongoing GI bleed I would continue with IV heparin for now until seen by hematology. I will try to get hold of his oncologist at [facility] today to update him. Today, I had a prolonged discussion with the patient's and his family at bedside about his current condition. We discussed risk and benefits of anticoagulation in particular with his underlying A. fib, high risk of stroke, and recent DVT. We will continue anticoagulation for now until I discuss further with hematology/oncology.
[2017-09-27 11:48] LABS: Glucose,Whole Blood 148 mg/dL (75-99)
[2017-09-27] MEDS: HYDROmorphone 2 MG TAB PO PRN (14:28)
[2017-09-27] MEDS: HEPARIN SOD,PORK IN 0.45% NACL 25,000 UNIT in 0.45% NACL 1 500ML.BAG IV SCH (14:30)
--- NOTE | 2017-09-27 14:59 | P.CONS ---
History of Present Illness - Reason for Consult Consult date: 09/27/17 Metastatic Lung Cancer on [place] Requesting physician: Jose Bess - Chief Complaint Hypoxia - History of Present Illness HPI: Mr. Cano is a very pleasant 72-year-old male who was first seen by our practice in February 2017 during hospital consultation, hospitalized at that time for mental status changes and was found to have a new diagnosis of Lung cancer with metastatic Disease to Brain. He has a known extensive medical history including atrial fibrillation, DVT (Recent) to the Right Upper Extremity, being treated with SQ Lovenox, Recurrent acute on chronic respiratory insufficiency/failure, wears home oxygen. He is currently receiving his oncologic care at [facility]. 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 Per the medical record he underwent stereotactic radiosurgery to the frontal lobe mass with recent MRI last month failed to show evidence of recurrence, these studies and treatments were completed through [facility]. He has been getting radiation therapy at [facility] in [place]. He apparently was recently admitted this week to [facility]. He was brought to [facility] 09/26/17 for further assessment of increasing mental status changes. Family reveals his oxygen saturation at home was low in the 70s. EMS was called and patient was transported to ER for further evaluation. 09/27/17 - Patient has been seen and evaluated today in consultation. On admission his hemoglobin was 7.6, today 6.4. WBC = 12.5, Platlet Count 155. Per daughter hemoglobin was 11.6 3 days prior. He did not admit to recent fall, although he is sleepy and family at bedside. Overall his mental status per family has improved. He has no appetite. Review of Systems A 14 point review of systems assessed and completed and all negative except HPI Past Medical History Past Medical History: Atrial Fibrillation, Cancer, Diabetes Mellitus, GERD/ Reflux, Hyperlipidemia, Hypertension Additional Past Medical History / Comment(s): past sinus infections, hx of brain Ca(had radiation and "told it was clear"), lung ca(had 2 tx chemo but had reaction to it then had 7 week break from it then restarted a reformulated chemo tx 2 cycles of it but on last tx again developed a reaction to it). has mets to spine-(just finsihed radiation tx to spine), [place] femur and pelvis/ribs/ sternum. History of Any Multi-Drug Resistant Organisms: None Reported Past Surgical History: Hernia Repair Additional Past Surgical History / Comment(s): umbilical hernia, mediport L subclavian, cyst removed from tailbone Past Anesthesia/Blood Transfusion Reactions: No Reported Reaction Smoking Status: Former smoker - Past Family History Mother Additional Family Medical History / Comment(s): when pt was 12 years old. not sure of cause. Father Family Medical History: Liver Disease Additional Family Medical History / Comment(s): alcoholic cirrhosis Medications and Allergies Home Medications Medication Instructions Recorded Confirmed Type Amiodarone [Cordarone] 200 mg PO BID 09/26/17 09/26/17 History Dexamethasone [Hexadrol] 4 mg PO BID 09/26/17 09/26/17 History Diltiazem HCl [Diltiazem ER] 180 mg PO DAILY 09/26/17 09/26/17 History Docusate [Colace] 100 mg PO BID 09/26/17 09/26/17 History Enoxaparin [Lovenox] 90 mg SQ Q12H 09/26/17 09/26/17 History Furosemide [Lasix] 40 mg PO HS 09/26/17 09/26/17 History Furosemide [Lasix] 80 mg PO QAM 09/26/17 09/26/17 History Gabapentin [Neurontin] 300 mg PO TID 09/26/17 09/26/17 History HYDROmorphone [Dilaudid] 4 mg PO Q4H PRN 09/26/17 09/26/17 History Insulin Aspart [NovoLOG Flexpen] See Protocol SQ ACHS 09/26/17 09/26/17 History Insulin Glargine,Hum.rec.anlog 80 unit SQ 09/26/17 09/26/17 History [Lantus Solostar] Magnesium(Unknown) 1 tab PO BID 09/26/17 09/26/17 History Omeprazole [PriLOSEC] 20 mg PO DAILY 09/26/17 09/26/17 History PARoxetine [Paxil] 10 mg PO DAILY 09/26/17 09/26/17 History Pravastatin Sodium [Pravachol] 20 mg PO DAILY 09/26/17 09/26/17 History fentaNYL 50MCG/HR PATCH [Duragesic 1 patch TRANSDERM Q72H 09/26/17 09/26/17 History 50MCG/HR] levETIRAcetam [Keppra] 500 mg PO BID 09/26/17 09/26/17 History Allergies Allergy/AdvReac Type Severity Reaction Status Date / Time Sulfa (Sulfonamide Allergy Rash/Hives Verified 09/26/17 09:10 Antibiotics) Physical Exam Vitals: Vital Signs Temp Pulse Resp BP Pulse Ox 09/27/17 08:10 98.7 F 94 16 134/62 97 09/27/17 06:23 98.2 F 95 16 144/61 91 L 09/26/17 22:54 97.5 F L 88 16 127/69 100 09/26/17 20:17 95 09/26/17 16:00 16 09/26/17 14:35 97.7 F Intake and Output 09/26/17 09/27/17 09/27/17 22:59 06:59 14:59 Intake Total 590 143.405 Balance 590 143.405 Intake: Intake, IV Titration 143.405 Amount Heparin Sod,Pork in 0.45% 143.405 NaCl 25,000 unit In 0.45 % NaCl 1 500ml.bag @ 8.17 UNITS/KG/HR 20.01 mls/hr IV .Q24H [facility] Rx#: [id number] Oral 590 Other: Voiding Method Urinal Urinal Diaper Diaper # Voids 2 1 - Constitutional General appearance: cooperative, morbidly obese, no acute distress - EENT Eyes: dentition normal ENT: NA/AT, thrush - Neck supple, Trachea midline Neck: normal ROM - Respiratory Respiratory: bilateral: CTA (Anterior, diminished auscultation due to size) - Cardiovascular A fib Rhythm: irregularly irregular leg Peripheral Edema: bilateral: 2+ - Gastrointestinal General gastrointestinal: normal bowel sounds, soft, tenderness - Integumentary Integumentary: pale - Neurologic No focal Defects Neurologic: CNII-XII intact - Musculoskeletal Musculoskeletal: generalized weakness - Psychiatric Fatigued and flat effect Psychiatric: A&O x's 3 Results CBC & Chem 7: 09/27/17 07:09 09/27/17 07:09 Labs: Abnormal Lab Results - Last 24 Hours (Table) 09/26/17 09/26/17 09/26/17 Range/Units 09:55 09:55 15:36 WBC (3.8-10.6) k/uL RBC (4.30-5.90) m/uL Hgb (13.0-17.5) gm/dL Hct (39.0-53.0) % RDW (11.5-15.5) % Neutrophils # (Manual) (1.3-7.7) k/uL Lymphocytes # (Manual) (1.0-4.8) k/uL Metamyelocytes # (Man) (0) k/uL Nucleated RBCs (0-0) /100 WBC APTT (22.0-30.0) sec Sodium (137-145) mmol/L Chloride (98-107) mmol/L Carbon Dioxide (22-30) mmol/L BUN (9-20) mg/dL Creatinine (0.66-1.25) mg/dL Glucose (74-99) mg/dL POC Glucose (mg/dL) 359 H (75-99) mg/dL Hemoglobin A1c 8.2 H (4.0-6.0) % Crossmatch See Detail 09/26/17 09/26/17 09/26/17 Range/Units 17:04 21:27 22:28 WBC (3.8-10.6) k/uL RBC (4.30-5.90) m/uL Hgb (13.0-17.5) gm/dL Hct (39.0-53.0) % RDW (11.5-15.5) % Neutrophils # (Manual) (1.3-7.7) k/uL Lymphocytes # (Manual) (1.0-4.8) k/uL Metamyelocytes # (Man) (0) k/uL Nucleated RBCs (0-0) /100 WBC APTT 33.7 H (22.0-30.0) sec Sodium (137-145) mmol/L Chloride (98-107) mmol/L Carbon Dioxide (22-30) mmol/L BUN (9-20) mg/dL Creatinine (0.66-1.25) mg/dL Glucose (74-99) mg/dL POC Glucose (mg/dL) 326 H 277 H (75-99) mg/dL Hemoglobin A1c (4.0-6.0) % Crossmatch 09/27/17 09/27/17 09/27/17 Range/Units 07:09 07:09 07:09 WBC 12.5 H (3.8-10.6) k/uL RBC 2.09 L (4.30-5.90) m/uL Hgb 6.4 L* (13.0-17.5) gm/dL Hct 20.2 L (39.0-53.0) % RDW 19.3 H (11.5-15.5) % Neutrophils # (Manual) 11.50 H (1.3-7.7) k/uL Lymphocytes # (Manual) 0.50 L (1.0-4.8) k/uL Metamyelocytes # (Man) 0.13 H (0) k/uL Nucleated RBCs 2 H (0-0) /100 WBC APTT 47.2 H (22.0-30.0) sec Sodium 134 L (137-145) mmol/L Chloride 97 L (98-107) mmol/L Carbon Dioxide 31 H (22-30) mmol/L BUN 53 H (9-20) mg/dL Creatinine 1.57 H (0.66-1.25) mg/dL Glucose 102 H (74-99) mg/dL POC Glucose (mg/dL) (75-99) mg/dL Hemoglobin A1c (4.0-6.0) % Crossmatch 09/27/17 09/27/17 Range/Units 07:25 11:47 WBC (3.8-10.6) k/uL RBC (4.30-5.90) m/uL Hgb (13.0-17.5) gm/dL Hct (39.0-53.0) % RDW (11.5-15.5) % Neutrophils # (Manual) (1.3-7.7) k/uL Lymphocytes # (Manual) (1.0-4.8) k/uL Metamyelocytes # (Man) (0) k/uL Nucleated RBCs (0-0) /100 WBC APTT (22.0-30.0) sec Sodium (137-145) mmol/L Chloride (98-107) mmol/L Carbon Dioxide (22-30) mmol/L BUN (9-20) mg/dL Creatinine (0.66-1.25) mg/dL Glucose (74-99) mg/dL POC Glucose (mg/dL) 122 H 148 H (75-99) mg/dL Hemoglobin A1c (4.0-6.0) % Crossmatch Assessment and Plan Plan: Assessment and Recommendations: 1. Metastatic Non-Small Cell Lung cancer: - Metastatic Disease to Brain and Bones, which appears to have progressed although uncertain with last 6 month care under an outside facility - Computed tomography scan of the chest done at [facility] yesterday showed interval development of for occlusion of the right upper lobe bronchus with soft issue density noted suggestive for enlarging mass along the right hilar region. There was progression of lytic lesions throughout the bones. - Original Diagnosis in February 2017 - Under the care of [facility] - Received SRS Radiation to Frontal Lobe Metastasis - Request sent to obtain recent diagnostics and pathology 2. Normocytic Anemia - Hemoglobin 6.4 today - ABLA versus other - No Evidence of acute Bleeding, Hemoglobin 3 days prior was apparently 11. - Anemia Work-up in progress, Last Chemo in August treatment per patient is palliative radiation therapy to lumbar spine just completed - Elevated liver function, confirm no underlying hemolysis - Await results of CT abdomen and Pelvis for etiology of anemia - Agree with PRBC Transfusion today, when hemoglobin is less than 7 3. Acute Kidney Injury: - Recent IV Contrast, likely component. - Patient had computed tomography scan of the chest abdomen and pelvis at [facility] yesterday. - Continue IV fluid hydration. Per Primary Team 4. Altered mental Status Changes: - Component of Metabolic Encephalopathy and Hypoxia - CT of the brain reviewed. MRI resonable if progressive, currently appears to have resolved 5. Uncontrolled Type 2 diabetes mellitus: - Defer to Primary Team 6. Acute Hypoxic Event on Chronic Respiratory Failure - Oxygen at home - Improved 7. Persistent/Chronic Atrial Fibrillation: - Per Primary Team 8. Recent Acute DVT involving the upper extremity: - Receive Therapeutic Dosed Anticoagulation Therapy with Lovenox as outpatient - Monitor Renal Function and agree with Heparin drip at this time secondary to acute renal insufficiency - Family and patient inquiring about other forms of anti-coagulation, Eliquis or Xarelto woul dbe resonable choices, but will defer to their [facility] Oncologist 9. Chronic pain secondary to bone metastasis: - Continue outpatient pain regimen with fentanyl patches and PRN breakthrough Opioids - Bowel Regimen for risk of narcotic induced constipation, per primary team 10. Liver Transiminitis - Monitor Liver Function - Bili is WNL - Medication induced versus other 11. Oral Candiasis - Add Nystatin Thank You For Allowing us to Participate in the Care of your Patient, we will follow along with you. Tiara De Leon NP
[2017-09-27 15:30] LABS: Reticulocyte % 4.3 % (0.5-2.0)
--- NOTE | 2017-09-27 15:32 | CT ---
EXAMINATION TYPE: CT abdomen pelvis wo con DATE OF EXAM: 09/27/2017 COMPARISON: 03/01/2017 HISTORY: Anemia rule out intra-abdominal bleed CT DLP: 2517 mGycm Automated exposure control for dose reduction was used. TECHNIQUE: Helical acquisition of images was performed from the lung bases through the pelvis. FINDINGS: Lack of intravenous and oral contrast limit evaluation of both the hollow and solid viscera . LUNG BASES: There is a partially visualized soft tissue density overlying the anterior margin of the right ribs 9 and rib 5. Rib 5 this measures 5.0 x 2.7 cm and at rib 9 this measures 3.9 x 2.0 cm. The re is diffuse low attenuation within the aorta and blood pool within the cardiac chambers fitting wit h the patient's history of anemia. Partial visualization of coronary artery calcifications and a trac e pleural effusion are noted. There is reactive pleural thickening of the lateral right midlung and m inimal bibasilar subsegmental dependent atelectasis. LIVER/GB: Vicarious excretion of contrast is present within the gallbladder from contrast given on . PANCREAS: No significant abnormality is seen. SPLEEN: No significant abnormality is seen. ADRENALS: Again mild symmetric nodularity is seen of the left adrenal gland unchanged from the prior likely related to adrenal gland hyperplasia. KIDNEYS: No hydronephrosis or nephrolithiasis. FREE AIR: No free air is visualized REPRODUCTIVE ORGANS: There is diffuse heterogeneity of the prostate gland with hyperdensity seen eith er from recent biopsy or possible prostate carcinoma. This is most pronounced of the prostate apex an d right lateral mid gland. URINARY BLADDER: No significant abnormality is seen. ADENOPATHY: No greater than 1 cm short axis lymph nodes are visualized within the abdomen or pelvis. . OSSEOUS STRUCTURES: Diffuse osseous metastasis is present throughout, advanced from the prior with i nnumerable new lytic lesions now seen in the vertebrae and hemipelvis. There is near complete destruc tion of multiple lower thoracic vertebral bodies. BOWEL: There is nonspecific presacral edema measuring up to 1.8 cm in thickness. This is simple flui d attenuated. No gross evidence of retroperitoneal hematoma. OTHER: There is asymmetric enlargement of the right gluteus medias and areas of hyperdensity with het erogeneity throughout. The right gluteus medius measures up to 7 cm in greatest thickness of the left measures up to 3.6 cm in greatest thickness. Findings are most compatible with intramuscular hemorrh age and are also seen within the right upper thigh abductors, partially visualized. Overlying soft ti ssue swelling is also noted within the subcutaneous tissues. Numerous subcutaneous nodules may relate to injection sites or posttraumatic contusions. IMPRESSION: 1. No evidence of retroperitoneal hematoma. 2. Large degree of intramuscular acute hemorrhage within the right gluteus medius and abductor muscul ature of the right thigh. 3. Significant progression of diffuse metastatic osseous disease with near-complete destruction of mu ltiple lower thoracic vertebral bodies. 4. Prostate gland hyperdensity that could relate to prosthetic neoplasm or hemorrhage in the setting of recent trauma or biopsy. 5. New soft tissue metastasis within multiple right ribs creating osseous destruction. A Yellow level critical message alert has been initiated for Julian Parker MD via the [employer] Critical Results System on 09/27/2017 3:29 PM. This message alert has been sent to Julian Parker MD via the preferences provided by the clinician for the receipt of Radiology Critical Findings. Message ID [id number].
[2017-09-27 15:37] LABS: Albumin 2.6 g/dL (3.5-5.0); Bilirubin, Delta 0.3 mg/dL (0.0-0.2); Bilirubin,Unconjugated 0.1 mg/dL (0.0-1.1); Total Bilirubin 0.4 mg/dL (0.2-1.3); Total Protein 4.7 g/dL (6.3-8.2)
[2017-09-27 17:21] LABS: Glucose,Whole Blood 211 mg/dL (75-99)
[2017-09-27] MEDS: NYSTATIN 100,000 UNIT/ML SUSP 500,000 UNIT/5 ML CUP PO SCH (18:26)
[2017-09-27 20:05] LABS: Glucose,Whole Blood 262 mg/dL (75-99)
[2017-09-27] MEDS: INSULIN DETEMIR 100 UNIT/ML 10 ML VIAL SQ SCH (21:19)
[2017-09-28 00:32] LABS: Iron Saturation 24.9 (15.00-50.00)
[2017-09-28] MEDS: HYDROmorphone 2 MG TAB PO PRN ×2 (00:34→12:17)
[2017-09-28] MEDS: NYSTATIN 100,000 UNIT/ML SUSP 500,000 UNIT/5 ML CUP PO SCH ×2 (00:37→09:17)
[2017-09-28 00:40] LABS: Folate, Serum 9.1 ng/mL
[2017-09-28 06:08] VITALS: BP 144/64; PULSE 72; RESP 16; TEMP 97
[2017-09-28 06:54] LABS: Anisocytosis Slight; HCT 21.3 % (39.0-53.0); HGB 7.1 gm/dL (13.0-17.5); Hypochromasia Slight; MCH 31.4 pg (25.0-35.0); MCHC 33.2 g/dL (31.0-37.0); MCV 94.6 fL (80.0-100.0); Macrocytosis Slight; Mean Platelet Volume 6.7; Platelet Count 114 k/uL (150-450); Poikilocytosis Moderate; RBC 2.25 m/uL (4.30-5.90); RDW 19.3 % (11.5-15.5)
[2017-09-28 06:57] LABS: Glucose,Whole Blood 230 mg/dL (75-99)
[2017-09-28 07:08] LABS: Anion Gap 3 mmol/L; Blood Urea Nitrogen 36 mg/dL (9-20); Calcium 8.5 mg/dL (8.4-10.2); Carbon Dioxide 31 mmol/L (22-30); Chloride 100 mmol/L (98-107); Glucose 193 mg/dL (74-99); Potassium 4.4 mmol/L (3.5-5.1); Sodium 134 mmol/L (137-145)
[2017-09-28] MEDS ORDERED: PANTOPRAZOLE 40 MG TABLET PO SCH (09:00)
[2017-09-28] MEDS: GABAPENTIN 100 MG CAP PO SCH (09:16)
[2017-09-28] MEDS: INSULIN ASPART 100 UNIT/ML 1 ML 10 ML VIAL SQ SCH (09:16)
[2017-09-28] MEDS: DEXAMETHASONE 4 MG TAB PO SCH (09:17)
[2017-09-28] MEDS: DOCUSATE 100 MG CAP PO SCH (09:17)
[2017-09-28] MEDS: levETIRAcetam 500 MG TAB PO SCH (09:17)
[2017-09-28] MEDS: AMIODARONE 200 MG TAB PO SCH (09:17)
[2017-09-28] MEDS: PARoxetine 10 MG TAB PO SCH (09:17)
[2017-09-28] MEDS: PRAVASTATIN SODIUM 20 MG TAB PO SCH (09:17)
[2017-09-28] MEDS: DILTIAZEM CD 180 MG CAP.ER.24H PO SCH (09:18)
[2017-09-28 10:36] LABS: Band Neutrophils % 1 %; Metamyelocytes # (M) 0.09 k/uL (0); Metamyelocytes % 1 %; Neutrophils % (M) 99 %; Nucleated Red Blood Cells 2 /100 WBC (0-0); Total Cells Counted 200
--- NOTE | 2017-09-28 11:17 | P.DS ---
Providers Date of admission: 09/26/17 12:51 Expected date of discharge: 09/28/17 Attending physician: Julian Parker MD Consults: 09/26/17 12:52 Consult Physician Urgent Consulting Provider: Lenny Rouse Consult Reason/Comments: Oncological care Do you want consulting provider notified?: Yes 09/26/17 15:46 Consult Physician Routine Consulting Provider: Lenny Rouse Consult Reason/Comments: lung cancer Do you want consulting provider notified?: Yes Primary care physician: [facility] Course: This is a 72-year-old male with complex past medical history noted below significant for stage IV lung cancer with bone metastasis who was admitted to the hospital with generalized weakness and was found to have worsening anemia with a hemoglobin of 6.4. Patient was found to have a large hematoma noted on computed tomography scan involving the right gluteus medius and abductor muscles of the right thigh. Patient was on anticoagulation which will be discontinued. During this hospitalization we had a prolonged discussion with the patient's, his , and his daughter is at bedside. Discussed care. Also discussed hospice philosophy and comfort measures. Patient and his family elected to pursue comfort measures. They do not want any aggressive measures anymore. Patient elected to be discharged home on hospice. His family decided that they want to continue with his current medication regimen and follow-up with the hospice physician at home when his condition started to deteriorate they would start stopping medication as indicated. Below is a list of his medical problems : 1. Acute kidney injury 2. Acute on chronic anemia, acute blood loss anemia 3. Non-small lung cancer stage IV with bone metastasis and evidence of complete destruction of multiple thoracic vertebra on computed tomography scan 4. Altered mental status, on presentation now improved 5. Type 2 diabetes mellitus 6. Acute on chronic hypoxic respiratory failure on home O2 7. Chronic atrial fibrillation 8. History of DVT involving the upper extremity 9. Chronic pain secondary to bone metastasis Patient Condition at Discharge: Serious Plan - Discharge Summary Discharge Rx Participant: No New Discharge Prescriptions: Continue fentaNYL 50MCG/HR PATCH [Duragesic 50MCG/HR] 1 patch TRANSDERM Q72H HYDROmorphone [Dilaudid] 4 mg PO Q4H PRN PRN Reason: Pain Gabapentin [Neurontin] 300 mg PO TID Docusate [Colace] 100 mg PO BID Insulin Glargine,Hum.rec.anlog [Lantus Solostar] 80 unit SQ HS Insulin Aspart [NovoLOG Flexpen] See Protocol SQ ACHS Omeprazole [PriLOSEC] 20 mg PO DAILY Amiodarone [Cordarone] 200 mg PO BID PARoxetine [Paxil] 10 mg PO DAILY Diltiazem HCl [Diltiazem 24Hr ER] 180 mg PO DAILY levETIRAcetam [Keppra] 500 mg PO BID Pravastatin Sodium [Pravachol] 20 mg PO DAILY Changed Dexamethasone [Hexadrol] 4 mg PO DAILY #0 Discontinued Enoxaparin [Lovenox] 90 mg SQ Q12H Magnesium(Unknown) 1 tab PO BID Furosemide [Lasix] 40 mg PO HS Furosemide [Lasix] 80 mg PO QAM Discharge Medication List Amiodarone [Cordarone] 200 mg PO BID 09/26/17 [History] Diltiazem HCl [Diltiazem 24Hr ER] 180 mg PO DAILY 09/26/17 [History] Docusate [Colace] 100 mg PO BID 09/26/17 [History] Gabapentin [Neurontin] 300 mg PO TID 09/26/17 [History] HYDROmorphone [Dilaudid] 4 mg PO Q4H PRN 09/26/17 [History] Insulin Aspart [NovoLOG Flexpen] See Protocol SQ ACHS 09/26/17 [History] Insulin Glargine,Hum.rec.anlog [Lantus Solostar] 80 unit SQ HS 09/26/17 [History ] Omeprazole [PriLOSEC] 20 mg PO DAILY 09/26/17 [History] PARoxetine [Paxil] 10 mg PO DAILY 09/26/17 [History] Pravastatin Sodium [Pravachol] 20 mg PO DAILY 09/26/17 [History] fentaNYL 50MCG/HR PATCH [Duragesic 50MCG/HR] 1 patch TRANSDERM Q72H 09/26/17 [ History] levETIRAcetam [Keppra] 500 mg PO BID 09/26/17 [History] Dexamethasone [Hexadrol] 4 mg PO DAILY #0 09/28/17 [Rx] Follow up Appointment(s)/Referral(s): [facility], [NON-STAFF] - 1 Week Discharge Disposition: HOME WITH HOSPICE
[2017-09-28 12:05] LABS: Glucose,Whole Blood 248 mg/dL (75-99)
== END 2017-09-28 12:43 | disposition hospice, home (50) | DRG 682 ==
LOC: EC 08:45 → 5ONC 12:51
PROVIDERS: ADMIT Family Medicine; ATTEND Family Medicine
DX: N17.9 Acute kidney failure, unspecified (principal); G92 Toxic encephalopathy; J96.21 Acute and chronic respiratory failure with hypoxia; C34.90 Malignant neoplasm of unspecified part of unspecified bronchus or lung; C79.31 Secondary malignant neoplasm of brain; C79.51 Secondary malignant neoplasm of bone; D62 Acute posthemorrhagic anemia; T50.8X5A Adverse effect of diagnostic agents, initial encounter; T40.605A Adverse effect of unspecified narcotics, initial encounter; T42.6X5A Adverse effect of other antiepileptic and sedative-hypnotic drugs, initial encounter; E11.9 Type 2 diabetes mellitus without complications; E78.5 Hyperlipidemia, unspecified; G89.3 Neoplasm related pain (acute) (chronic); I10 Essential (primary) hypertension; I48.2 Chronic atrial fibrillation; M79.81 Nontraumatic hematoma of soft tissue; Z99.81 Dependence on supplemental oxygen; K21.9 Gastro-esophageal reflux disease without esophagitis; Z79.01 Long term (current) use of anticoagulants; Z79.4 Long term (current) use of insulin; Z79.899 Other long term (current) drug therapy; Z86.718 Personal history of other venous thrombosis and embolism; Z87.891 Personal history of nicotine dependence; Z88.2 Allergy status to sulfonamides
CPT/HCPCS: 36415; 36600; 70470; 71046; 74176; 80048; 80053; 80076; 81001; 82009; 82272; 82607; 82728; 82746; 82805; 83010; 83036; 83540; 83550; 83615; 83735; 85025; 85045; 85610; 85730; 86850; 86900; 86901; 86920; 93005; 94760; 96360; 99285